=== PATIENT | male | born 1970 | race American Indian/Alaskan Native ===

== ENCOUNTER 2018-10-07 09:18 | Day surgery (SDC) | payer OTHER ==
[~2018-10-07 09:18] MED LIST: NACL 0.9% 1000 ML 1,000 ML IV SCH
[2018-10-07] MEDS ORDERED: NORMODYNE IV ONE (10:27)
[2018-10-07] MEDS ORDERED: VERSED ONE (10:27)
--- NOTE | 2018-10-07 12:14 | Anesthesia Consultation ---
Anesthesia Consult and Med Hx Date of service: 10/07/18 - Airway Anesthetic Teeth Evaluation: Good ROM Head & Neck: Adequate Mental/Hyoid Distance: Adequate Mallampati Class: Class III Intubation Access Assessment: Possibly Difficult - Pre-Operative Health Status ASA Pre-Surgery Classification: ASA3 Proposed Anesthetic Plan: MAC - Pulmonary Hx Sleep Apnea: Yes (Uses CPAP) - Cardiovascular System Hx Hypertension: Yes Hx Coronary Artery Disease: No (high cholesterol) Hx Heart Attack/AMI: No (EF 25%) Hx Internal Defibrillator: Yes - Endocrine Hx Insulin Dependent Diabetes: Yes - Other Systems Hx Obesity: Yes (BMI 44.1)
--- NOTE | 2018-10-07 12:16 | Anesthesia Day of Surgery ---
Anesthesia Day of Surgery - Day of Surgery Patient Examined: Yes Patient H&P Reviewed: Yes Patient is NPO: Yes Beta Blockers: Yes (given Labetalol 20 mg total IV in preop) Cardiac Clearance: Yes
[2018-10-07] MEDS ORDERED: APRESOLINE IV ONE (13:30)
[2018-10-07] MEDS ORDERED: DIPRIVAN 10 MG/ML IV ONE ×3 (13:44→14:43)
--- NOTE | 2018-10-07 14:50 | Operative Report ---
Operative Report Operative Report: Date of procedure: 10/07/2018 Procedure: Colonoscopy with Snare polypectomy, Multiple Hot Biopsy Polypectomies, Ablation of colon polyps and submucosal injection. Attending physician: José Vazquez M.D. Nurses' Registry Director: José Vazquez M.D. Indication: Patient is a 48-year-old male who presents for screening colonoscopy. Patient had undergone recent workup for pituitary adenoma with acromegaly. This colonoscopy serves to evaluate patient and also for colorectal cancer screening so that treatment may be directed based on the findings. Consent: Informed consent was obtained after advising the patient and family regarding nature of this procedure, its indications, potential benefits as well as possible complications including but not limited to bleeding perforation and adverse reaction to medication, infection as well as other cardiopulmonary complications. An informed written and verbal consent was then obtained after due opportunity was provided for questions and answers. Monitoring: Patient was monitored continuously with pulse oximetry and electrocardiographic recordings as well as blood pressure recordings. Vital signs remained stable throughout this procedure with no untoward events. Preoperative assessment: Patient was assessed immediately prior to this procedure for capacity to tolerate monitored anesthesia care and moderate sedation as well as general anesthesia. Patient's ASA classification is 4, Mallampati class is 2, Hyomental distance is 3. Instrument: Olympus video colonoscope. Medications: Propofol given intravenously in divided doses. For details please refer to anesthesia records. Description of procedure: Patient was placed in the left lateral decubitus position after achieving sedation, a digital rectal examination was performed following which the colonoscope was introduced into the anal verge and advanced to the cecum which was identified by the cecal valve, the appendiceal orifice, as well as by the cecal strap and direct transillumination. The colonoscope was subsequently withdrawn with careful inspection of all mucosal surfaces. Patient tolerated this procedure well and was subsequently taken to the recovery room. The following findings were noted. Findings: The preparation was relatively poor patient has substantial retained stool in various sections of this colon. This was irrigated as much as possible to optimize visualization. In the cecum, patient had a sessile 1 cm polyp which was elevated with submucosal injection of saline and removed with snare electrocautery. The base of the polyp was ablated. A Hemoclip was placed over the polypectomy site. The ascending colon had substantial retained stool but was otherwise normal. The transverse colon was normal. The descending colon was normal. In the sigmoid colon, patient had 12 polyps measuring between 5-8 mm which are all sessile or flat. All polyps were removed by hot biopsy polypectomy and retrieved. There were also additional diminutive polyps that were ablated. In the rectum, patient had diminutive flat polyps that were ablated. Patient had scattered small diverticula in the sigmoid and descending colon. On the retroflex view at the anal verge, patient had internal hemorrhoids. Impression: Cecal polyp status post submucosal injection, snare polypectomy, ablation of polyp base, Hemoclip application. Multiple sigmoid colon polyps status post hot biopsy polypectomy. Diminutive sigmoid colon polyps status post ablation. Diminutive rectal polyp status post ablation. Diminutive diverticula of the sigmoid and descending colon. Prominent internal hemorrhoids. Substantial retained stool. Plan: Follow pathology report. High-fiber diet. Repeat colonoscopy in 6-12 months, due to poor colonoscopic preparation with retained stool and presence of multiple polyps.
--- NOTE | 2018-10-07 14:51 | Discharge Summary ---
Short Stay Discharge Plan Activity: advance as tolerated Weight Bearing Status: Weight Bear as Tolerated Diet: regular Additional Instructions: Post Sedation D/C Instructions When you return home you may resume your regular diet unless otherwise directed. -Go directly home from the hospital and rest quietly. You may resume normal activities tomorrow. -Do NOT drive, return to work, operate any machinery or make any important personal or business decisions today. -Do NOT drink any alcohol or take nerve or sleeping drugs. They add to the effects of the medicine still present in your body. -NO ASPIRIN OR NSAIDS(MOTRIN, ALEEVE,IBUPROFEN, ETC.) FOR NEXT 2-3 DAYS -FIBER DAILY WITH PLENTY OF FLUIDS DAILY -FOLLOW UP WITH DR. HATFIELD IN THE NEXT 1-2 WEEKS FOR RESULTS OF TODAY'S VISIT Follow up with: PRIMARY CARE, [Primary Care Provider] - 7 Days
[2018-10-07 15:11] VITALS: BP 176/96
== END 2018-10-07 09:19 | disposition home or self-care (01) ==
LOC: GIO 09:18
PROVIDERS: ATTEND Internal Medicine Gastroenterology
DX: Z12.11 Encounter for screening for malignant neoplasm of colon (principal); D12.0 Benign neoplasm of cecum; K63.5 Polyp of colon; K57.30 Diverticulosis of large intestine without perforation or abscess without bleeding; K64.8 Other hemorrhoids; E22.0 Acromegaly and pituitary gigantism; I11.0 Hypertensive heart disease with heart failure; I50.9 Heart failure, unspecified; E11.9 Type 2 diabetes mellitus without complications; E66.9 Obesity, unspecified; G47.30 Sleep apnea, unspecified; I25.10 Atherosclerotic heart disease of native coronary artery without angina pectoris; E78.00 Pure hypercholesterolemia, unspecified; Z68.41 Body mass index [BMI] 40.0-44.9, adult; Z98.890 Other specified postprocedural states; Z79.899 Other long term (current) drug therapy; Z79.84 Long term (current) use of oral hypoglycemic drugs; Z79.82 Long term (current) use of aspirin
CPT/HCPCS: 45381; 45384; 45385; 45388; 82962; 88305; J0360; J2250; J2704; J7030